=== PATIENT | male | born 1955 | race Caucasian/White ===

== ENCOUNTER 2023-03-17 20:07 | Inpatient (IN) | payer SELFPAY ==
[2023-03-17] MEDS ORDERED: Ondansetron PF 4 MG/2 ML Vial IVP PRN (21:24)
[2023-03-17] MEDS ORDERED: Ondansetron ODT 4 MG TAB PO PRN (21:24)
[2023-03-17] MEDS ORDERED: Nicotine 14 MG PATCH TD PRN (21:24)
[2023-03-17] MEDS ORDERED: Acetaminophen 325 MG TAB PO PRN (21:24)
[2023-03-17 21:58] VITALS: BMI 23.1
[2023-03-17] MEDS ORDERED: Nitroglycerin 0.4 MG TAB (25 Tab Bottle) SL PRN (22:05)
[2023-03-17 22:48] LABS: Troponin I Less than 0.010 ng/mL (< 0.028)
[2023-03-18 01:53] LABS: Troponin I Less than 0.010 ng/mL (< 0.028)
[2023-03-18 04:38] LABS: #Eosinphils 0.5 thou/uL (0.0-0.7); #Monocytes 0.7 thou/uL (0.11-0.59); #Neutrophils 4.1 thou/uL (1.40-6.50); %Basophils 0.5 % (0.0-1.0); %Eosinophils 7.4 % (0.0-10.0); %Lymphocytes 18.4 % (21.0-51.0); %Monocytes 10.8 % (0.0-10.0); %Neutrophils 62.7 % (42.0-75.0); Hematocrit 45.7 % (42.0-52.0); Hemoglobin 15.6 g/dL (14.0-18.0); Mean Corpuscular HGB CONC 34.1 g/dL (32.0-36.0); Mean Corpuscular Hemoglobin 30.6 pg (27.0-31.0); Mean Corpuscular Volume 89.6 fl (78.0-98.0); Mean Platelet Volume 10.4 fL (7.4-10.4); Platelet Count 211 10x3/uL (130-400); RBC Distribution Width 12.1 % (11.5-14.5); White Blood Cell (WBC) Count 6.6 10x3/uL (4.8-10.8)
[2023-03-18 04:49] LABS: Hemoglobin A1c 5.8 % (4.0-6.0)
[2023-03-18 05:12] LABS: Anion Gap 12 mmol/L (10-20); BUN (Urea Nitrogen) 8 mg/dL (8.4-25.7); Calc. Creatinine Clearance 110 mL/min (70-130); Calcium 8.9 mg/dL (7.8-10.44); Carbon Dioxide 24 mmol/L (23-31); Cardiac Risk 3.3 (Less than 4.5); Chloride 99 mmol/L (98-107); Cholesterol 147 mg/dl (< 200 Desired); Estimated GFR 104; Glucose 80 mg/dL (80-115); HDL Cholesterol 45 mg/dL (>60 Neg Risk); LDL Cholesterol, Calculated 85 mg/dL; Sodium 131 mmol/L (136-145); Triglycerides 86 mg/dL (Less than 150)
[2023-03-18] MEDS: Aspirin Chewable 81 MG TAB PO SCH (08:40)
[2023-03-18] MEDS ORDERED: HYDROcodone/Acetaminophen 5/325 mg Tablet PO PRN (08:45)
[2023-03-18] MEDS ORDERED: Morphine 2 MG/ML VIAL SLOW IVP PRN (08:46)
[2023-03-18] MEDS ORDERED: Ipratropium/Albuterol 3 ML NEB NEB PRN (08:57)
[2023-03-18] MEDS: Senokot S 8.6-50 MG TAB PO SCH ×2 (08:59→22:14)
[2023-03-18] MEDS ORDERED: Ipratropium/Albuterol 3 ML NEB NEB SCH (09:00)
[2023-03-18] MEDS ORDERED: ADENOSINE 60 MG/20 ML SDV ONE (13:53)
[2023-03-18] MEDS ORDERED: Amlodipine 5 MG TAB PO PRN (21:53)
[2023-03-19 05:58] LABS: #Eosinphils 0.3 thou/uL (0.0-0.7); #Monocytes 1.1 thou/uL (0.11-0.59); #Neutrophils 7.2 thou/uL (1.40-6.50); %Basophils 0.2 % (0.0-1.0); %Eosinophils 2.6 % (0.0-10.0); %Lymphocytes 10.9 % (21.0-51.0); %Monocytes 11.2 % (0.0-10.0); %Neutrophils 74.9 % (42.0-75.0); Hematocrit 45.4 % (42.0-52.0); Hemoglobin 15.6 g/dL (14.0-18.0); Mean Corpuscular HGB CONC 34.4 g/dL (32.0-36.0); Mean Corpuscular Volume 90.1 fl (78.0-98.0); Mean Platelet Volume 10.9 fL (7.4-10.4); Platelet Count 222 10x3/uL (130-400); RBC Distribution Width 12.3 % (11.5-14.5); Red Blood Cell (RBC) Count 5.04 mill/uL (4.70-6.10); White Blood Cell (WBC) Count 9.6 10x3/uL (4.8-10.8)
[2023-03-19 06:18] LABS: Anion Gap 13 mmol/L (10-20); BUN (Urea Nitrogen) 13 mg/dL (8.4-25.7); Calc. Creatinine Clearance 100 mL/min (70-130); Calcium 9.1 mg/dL (7.8-10.44); Carbon Dioxide 24 mmol/L (23-31); Chloride 99 mmol/L (98-107); Estimated GFR 101; Glucose 79 mg/dL (80-115); Potassium 4.2 mmol/L (3.5-5.1); Sodium 132 mmol/L (136-145)
[2023-03-19] MEDS ORDERED: Carvedilol 6.25 MG TAB PO SCH (08:00)
[2023-03-19 08:21] VITALS: BP 107/59; TEMP 98
[2023-03-19] MEDS: Aspirin Chewable 81 MG TAB PO SCH (09:01)
[2023-03-19] MEDS: Senokot S 8.6-50 MG TAB PO SCH (09:02)
== END 2023-03-19 12:39 | disposition home or self-care (01) | DRG 313 ==
LOC: 2NO 20:07 → OBSVTOIN 03-18 14:41
PROVIDERS: ADMIT Student in an Organized Health Care Education/Training Program; ATTEND Internal Medicine
DX: R07.9 Chest pain, unspecified (principal); E87.1 Hypo-osmolality and hyponatremia; I10 Essential (primary) hypertension; Z66 Do not resuscitate; L05.91 Pilonidal cyst without abscess; I25.2 Old myocardial infarction; I25.10 Atherosclerotic heart disease of native coronary artery without angina pectoris; F17.210 Nicotine dependence, cigarettes, uncomplicated; Z79.82 Long term (current) use of aspirin; Z82.49 Family history of ischemic heart disease and other diseases of the circulatory system; Z79.899 Other long term (current) drug therapy; Z71.6 Tobacco abuse counseling
CPT/HCPCS: 36415; 78452; 80048; 80061; 83036; 84484; 85025; 93017; 94640; 94760; 97139; A9502; G0378; J0153; J7620